=== PATIENT | female | born 1960 | race Caucasian/White ===

== ENCOUNTER 2016-12-10 14:46 | Emergency (ER) | payer MEDICARE, OTHER ==
[~2016-12-10 14:46] MED LIST: AMITIZA24 MCG PO; AMITRIPTYLINE150 MG PO; AMITRYPTYLINE PO; ASPIRIN81 M1 PO; CITALOPRAM HBR40 MG PO; HYDROCODON-ACE1 EAC4 PO; HYDROCODON-ACE1 EAC5 PO; LASIX20 MG PO; MORPHINE SULFA100 M2 PO; MORPHINE SULFA100 MG PO; MS CONTIN PO; NORCO 5/325 TAB1 TAB PO; OMEPRAZOLE40 M1 PO; PHENERGAN12.5 MG/SU PR; PRILOSEC PO; PRILOSEC20 MG PO; SENNA LAXATIVE25 MG PO; SYNTHROID0.15 MG PO; SYNTHROID137 MCG PO; TOPAMAX PO; TOPAMAX25 M1 PO; TOPAMAX50 MG PO; ZOCOR80 MG PO
== END 2016-12-10 17:25 | disposition home or self-care (01) ==
LOC: CED 14:46
DX: M79.642 Pain in left hand (principal); I10 Essential (primary) hypertension; Z88.2 Allergy status to sulfonamides; Z91.018 Allergy to other foods; Z79.899 Other long term (current) drug therapy
CPT/HCPCS: 99282